=== PATIENT | female | born 1945 | race African-American/Black ===

== ENCOUNTER 2021-09-09 16:39 | Emergency (ER) | payer OTHER ==
[~2021-09-09] VITALS: Ht 152.4 cm; Wt 91.0 kg
[2021-09-09 16:51] VITALS: BP 162/99
== END 2021-09-09 20:12 | disposition left against medical advice (07) ==
LOC: ER 16:39
DX: I10 Essential (primary) hypertension (principal); Z53.21 Procedure and treatment not carried out due to patient leaving prior to being seen by health care provider
CPT/HCPCS: 93005